=== PATIENT | female | born 1950 | race Hispanic/Latino ===

== ENCOUNTER 2016-11-21 08:35 | Emergency (ER) | payer MEDICARE ==
[2016-11-21 09:00] VITALS: RESP 18; TEMP 97.7; O2SAT 99
[2016-11-21 09:11] VITALS: BMI 44.6
--- NOTE | 2016-11-21 09:14 | ED PDOC ---
Arrival/HPI - General Chief Complaint: Palpitations Time Seen by Provider: 11/21/16 08:54 Historian: Patient - History of Present Illness Narrative History of Present Illness (Text): 11/21/16 09:11 66 year old female whose past medical history includes atrial fibrillation ( previous hospitalizations for afib, 1 cardioversion in 09/2016) [place] with chest tightness, jaw pain, and arm pain that began at 22:30 last night while lying in bed that has since resolved. Cruise records show patient was given Diltiazem at 01:40. Cruise ship records also show she had one set of negative cardiac enzymes at 04:40. Patient was converted at 06:30. On arrival patient states she feels better and states her symptoms have resolved. No other complaints. Time/Duration: 24 hours Symptom Onset: Sudden Symptom Course: Resolved Activities at Onset: Rest Past Medical History - Provider Review Nursing Documentation Reviewed: Yes - Infectious Disease Hx of Infectious Diseases: None - Reproductive Menopause: Yes - Cardiac Hx Atrial Fibrillation: Yes Hx Hypertension: Yes Other/Comment: hx cardioversion , last hospitalization for afib 1month ago - Psychiatric Hx Substance Use: No Family/Social History - Physician Review Nursing Documentation Reviewed: Yes Family/Social History: Unknown Family HX Smoking Status: Unknown If Ever Smoked Hx Alcohol Use: No Hx Substance Use: No Allergies/Home Meds Allergies/Adverse Reactions: Allergies No Known Allergies Allergy (Verified 11/21/16 08:57) Home Medications: Home Meds Medication Instructions Recorded Confirmed Apixaban [Eliquis] 0 mg PO DAILY 11/21/16 11/21/16 Flecainide [Tambocor] 0 mg PO DAILY 11/21/16 11/21/16 Omeprazole 40 mg PO DAILY 11/21/16 11/21/16 Review of Systems - Physician Review All systems were reviewed & negative as marked: Yes - Review of Systems Respiratory: absent: SOB Cardiovascular: Chest Pain (resolved) Gastrointestinal: absent: Abdominal Pain, Vomiting Skin: Other (jaw pain (resolved), arm pain (resolved)) Physical Exam - Physical Exam Narrative Physical Exam (Text): Constitutional: No acute distress. Head: Normocephalic. Atraumatic. Eyes: PERRL. ENT: Moist mucous membranes. Neck: Supple. Cardiovascular: Regular rate. Chest: No tenderness. Respiratory: Clear to auscultation bilaterally. GI: Soft. Nontender. Nondistended. Back: No CVA tenderness. Musculoskeletal: No tenderness or swelling of extremities. Skin: No rash. Neurologic: Alert, no focal deficit. Vital Signs Reviewed: Yes Vital Signs Temp Pulse Resp BP Pulse Ox 11/21/16 10:59 55 L 18 112/69 99 11/21/16 09:00 97.7 F 56 L 18 110/67 99 Temperature: Afebrile Blood Pressure: Normal Pulse: Bradycardic Respiratory Rate: Normal Appearance: Positive for: Well-Appearing, Non-Toxic, Comfortable Pain Distress: None Mental Status: Positive for: Alert and Oriented X 3 Medical Decision Making ED Course and Treatment: Impression: 66 year old female whose past medical history includes atrial fibrillation (2 previous hospitalizations for afib, 1 cardioversion) presents [place] with chest tightness, jaw pain, and arm pain that began at 22: 30 last night while lying in bed that has since resolved. Differential Diagnosis include but are not limited to: Plan: -- EKG -- Labs -- Reassess and disposition Progress Notes: EKG shows sinus rhythm at 53 BPM with Q wave in III, no ST elevations. Interpreted by me. Chest X-ray Award Clerk: Rene Miramontes MD IMPRESSION: Clear lungs. Patient with negative CK/trop here, no symptoms, and no chest pain. I discussed the rationale of cardiac enzymes with the patient, and she understood and wished to go home to [place]. She states she will see her paper coater tomorrow, and her son will come pick her up to drive her home. - Lab Interpretations Lab Results: 11/21/16 09:20 11/21/16 09:20 Lab Results 11/21/16 09:20: Sodium 139, Potassium 4.4, Chloride 105, Carbon Dioxide 28, Anion Gap 10, BUN 17, Creatinine 0.6, Est GFR ( Amer) > 60, Est GFR (Non- Af Amer) > 60, Random Glucose 102, Calcium 9.4, Total Bilirubin 0.9, AST 23, ALT 31, Alkaline Phosphatase 80, Total Creatine Kinase 99, Troponin I < 0.01, Total Protein 6.8, Albumin 3.7, Globulin 3.2, Albumin/Globulin Ratio 1.2 11/21/16 09:20: PT 10.6, INR 0.98, APTT 27.1 11/21/16 09:20: WBC 8.6, RBC 4.44, Hgb 13.4, Hct 40.2, MCV 90.5, MCH 30.2, MCHC 33.3, RDW 15.0 H, Plt Count 212, MPV 10.0, Gran % 72.9 H, Lymph % (Auto) 19.2 L , [place] % (Auto) 6.3 H, Eos % (Auto) 1.4 L, Baso % (Auto) 0.2, Gran # 6.30, Lymph # 1.7, [place] # 0.5, Eos # 0.1, Baso # 0.02 - RAD Interpretation Radiology Orders: 11/21/16 09:13 CHEST PORTABLE [RAD] Stat Pharmacy Clerk: Radiologist - EKG Interpretation Interpreted by ED Physician: Yes Type: 12 lead EKG - Scribe Statement The provider has reviewed the documentation as recorded by the Jaylen Martin Provider Scribe Attestation: All medical record entries made by the Jaylen were at my direction and personally dictated by me. I have reviewed the chart and agree that the record accurately reflects my personal performance of the history, physical exam, medical decision making, and the department course for this patient. I have also personally directed, reviewed, and agree with the discharge instructions and disposition. Disposition/Present on Arrival - Present on Arrival Any Indicators Present on Arrival: No History of DVT/PE: No History of Uncontrolled Diabetes: No Urinary Catheter: No History of Decub. Ulcer: No History Surgical Site Infection Following: None - Disposition Have Diagnosis and Disposition been Completed?: Yes Diagnosis: Paroxysmal atrial fibrillation Disposition: HOME/ ROUTINE Disposition Time: 10:43 Patient Plan: Discharge Condition: STABLE Discharge Instructions (ExitCare): Atrial Fibrillation (ED) Referrals: Norma Nye, [Primary Care Provider] - Follow up with primary
[2016-11-21 09:26] LABS: ADD MANUAL DIFF? NO
[2016-11-21 09:28] LABS: BASO # 0.02 K/mm3 (0.0-2.0); BASO % 0.2 % (0.0-3.0); EOS # 0.1 (0.0-0.7); EOS % 1.4 % (1.5-5.0); GRAN % 72.9 % (50.0-68.0); HEMATOCRIT 40.2 % (36.0-48.0); LYMPH # 1.7 (1.2-3.4); LYMPH % 19.2 % (22.0-35.0); MEAN CELL VOLUME 90.5 fL (80.0-105.0); MEAN CORPUSCULAR HEMOGLOBIN 30.2 pg (25.0-35.0); MEAN CORPUSCULAR HGB CONC 33.3 g/dl (31.0-37.0); MONO # 0.5 (0.1-0.6); MONO % 6.3 % (1.0-6.0); PLATELET COUNT 212 10^3/uL (120.0-450.0); WHITE BLOOD COUNT 8.6 10^3/ul (4.5-11.0)
[2016-11-21 09:41] LABS: INR 0.98 (0.93-1.08); PARTIAL THROMBOPLASTIN TIME 27.1 Seconds (23.7-30.8)
--- NOTE | 2016-11-21 10:03 | RAD ---
PROCEDURE: CHEST RADIOGRAPH, 1 VIEW HISTORY: palpitations, chest tightness COMPARISON: None available. FINDINGS: LUNGS: Clear. PLEURA: No pneumothorax or pleural fluid seen. CARDIOVASCULAR: Enlarged cardiomediastinal silhouette. OSSEOUS STRUCTURES: The osseous structures demonstrate degenerative changes. VISUALIZED UPPER ABDOMEN: Upper abdomen is suboptimally evaluated. OTHER FINDINGS: None. IMPRESSION: Clear lungs.
[2016-11-21 10:19] LABS: ALB/GLOB RATIO 1.2 (1.1-1.8); ALKALINE PHOSPHATASE 80 U/L (38-133); ALT/SGPT 31 U/L (7-56); AST/SGOT 23 U/L (15-39); BILIRUBIN,TOTAL 0.9 mg/dL (0.2-1.3); BLOOD UREA NITROGEN 17 mg/dL (7-21); CALCIUM 9.4 mg/dL (8.4-10.5); CARBON DIOXIDE 28 mmol/L (21-33); CHLORIDE 105 mmol/L (98-107); GFR AFRICAN-AMERICAN > 60; GLUCOSE,RANDOM 102 mg/dL (70-110); POTASSIUM 4.4 mmol/L (3.6-5.0); SODIUM 139 mmol/L (132-148); TOTAL PROTEIN 6.8 g/dL (5.8-8.3)
[2016-11-21 10:38] LABS: TROPONIN I < 0.01 ng/mL
[2016-11-21 11:00] VITALS: BP 112/69; PULSE 55
--- NOTE | 2016-11-22 11:32 | CARD ---
APPROVED REPORT EKG Measurement Heart [id number] <Conclusion> Sinus bradycardia Leftward axis PRWP
== END 2016-11-21 11:27 | disposition home or self-care (01) ==
LOC: ED 08:35
DX: I48.0 Paroxysmal atrial fibrillation (principal); I10 Essential (primary) hypertension